=== PATIENT | female | born 1990 | race Caucasian/White ===

== ENCOUNTER 2017-06-16 17:00 | Emergency (ER) | payer MEDICAID, OTHER ==
[2017-06-16 17:18] VITALS: BP 156/100
[2017-06-16] MEDS ORDERED: Albuterol/Ipratropium 3.0-0.5 MG/3 ML Neb Soln NEB ONE (17:48)
[2017-06-16] MEDS ORDERED: Codeine/Promethazine 10-6.25 MG/5 ML Syrup 5 ML UD Cup PO ONE (17:48)
--- NOTE | 2017-06-16 17:49 | EDM.PDOC ---
ED HPI GENERAL MEDICAL PROBLEM - General Chief Complaint: Respiratory Problem Stated Complaint: CHEST PAIN WHEN COUGHING Time Seen by Provider: 06/16/17 17:47 Source of Information: Reports: Patient History Limitations: Reports: No Limitations - History of Present Illness INITIAL COMMENTS - FREE TEXT/NARRATIVE: 19-year-old female presents to the ED with acute onset of his progress severe paroxysmal cough. Hoarse voice. Chills but no defined fever. Poor appetite. No headache mild myalgia. Wallace started acutely last night and have worsened as the day has gone on. At times she cannot stop coughing. She has been exposed to influenza. She has not had a flu shot. States occasionally will bring up some sputum but has does not look at the color. Denies any obvious hemoptysis. Onset: Sudden Onset Date: 06/15/17 Duration: Hour(s): Location: Reports: Chest (Severe paroxysmal minimally productive cough.) Quality: Reports: Burning Severity: Moderate Improves with: Reports: None Worsens with: Reports: Other Context: Denies: Activity (Exposure to cool night air or laying down.), Exercise , Lifting, Sick Contact, Trauma, Other Associated Symptoms: Reports: Chest Pain ( severe paroxysmal cough), Cough ( Very little sputum production), cough w sputum, Fever/Chills, Loss of Appetite, Malaise, Shortness of Breath, Weakness. Denies: No Other Symptoms, Confusion ( until upper chest from coughing so much. ), Diaphoresis, Headaches (Chills but no defined fever), Nausea/Vomiting, Rash, Seizure, Syncope Treatments UNDERWATER WELDER: Reports: Other (see below) (None.) Chest Pain Score (Numeric/FACES): 5 - Related Data Allergies Allergy/AdvReac Type Severity Reaction Status Date / Time ibuprofen Allergy Anaphylactic Verified 06/16/17 17:19 Shock peanut Allergy Anaphylactic Verified 06/16/17 17:19 Shock wool Allergy Hives Verified 06/16/17 17:19 Home Meds: Home Meds Codeine/Promethazine [Phenergan with Codeine] 15 ml PO Q4H PRN #300 ml 06/16/17 [Rx] Doxycycline [Vibramycin 25 MG/5 ML Susp] 100 mg PO Q12H #20 bottle 06/16/17 [Rx] Levothyroxine [Synthroid] 100 mcg PO ACBREAKFAST 06/16/17 [History] Past Medical History HEENT History: Reports: Impaired Vision Endocrine/Metabolic History: Reports: Hypothyroidism Social & Family History - Tobacco Use Smoking Status *Q: Current Every Day Smoker Years of Tobacco use: 10 Packs/Tins Daily: 1 Used Tobacco, but Quit: No Month Tobacco Last Used: 2 years ago Second Hand Smoke Exposure: No - Caffeine Use Caffeine Use: Reports: Soda - Recreational Drug Use Recreational Drug Use: No Drug Use in Last 12 Months: No Recreational Drug Type: Reports: Dilaudid, Methamphetamine, Other (see below) Recreational Drug Use Frequency: Not Used In Over 6 Months - Living Situation & Occupation Occupation: Unemployed ED ROS GENERAL - Review of Systems Review Of Systems: See Below Constitutional: Reports: Chills, Malaise, Weakness, Fatigue, Decreased Appetite. Denies: Fever, Weight Loss HEENT: Reports: Throat Pain Respiratory: Reports: Shortness of Breath, Cough. Denies: Wheezing, Pleuritic Chest Pain, Sputum, Hemoptysis (Severe paroxysmal), Other Cardiovascular: Reports: Chest Pain (From coughing so much). Denies: No Symptoms, Blood Pressure Problem, Dyspnea on Exertion, Edema, Lightheadedness, Orthopnea, Palpitations, PND, Syncope, Other Endocrine: Reports: No Symptoms GI/Abdominal: Reports: No Symptoms : Reports: No Symptoms Musculoskeletal: Reports: No Symptoms Skin: Reports: No Symptoms Neurological: Reports: No Symptoms Psychiatric: Reports: No Symptoms Hematologic/Lymphatic: Reports: No Symptoms Immunologic: Reports: No Symptoms ED EXAM, GENERAL - Physical Exam Exam: See Below Exam Limited By: No Limitations General Appearance: Alert, Moderate Distress (Severe paroxysmal intermittent cough.) Eye Exam: Bilateral Eye: Normal Inspection Ears: Normal TMs Throat/Mouth: Normal Inspection, Normal Lips, Normal Teeth, Normal Oropharynx, Other Head: Atraumatic (Posterior oropharynx is mildly erythematous without any exudate.), Normocephalic Neck: Normal Inspection, Supple, Non-Tender, Full Range of Motion. No: Carotid Bruit, Limited Range of Motion, Lymphadenopathy (L), Lymphadenopathy (R) Respiratory/Chest: No Respiratory Distress, Lungs Clear, Respiratory Distress ( Mild tachypnea at rest.). No: Decreased Breath Sounds, Rhonchi, Wheezing ( Lower lungs are clear.) Cardiovascular: Normal Peripheral Pulses, Regular Rate, Rhythm (Resting heart rate is 1 15/m.), No Edema, No Gallop, No Murmur, No Rub, Tachycardia Peripheral Pulses: 3+: Posterior Tibial (L), Posterior Tibial (R), Dorsalis Pedis (L), Dorsalis Pedis (R) GI/Abdominal: Normal Bowel Sounds, Soft, Non-Tender, No Organomegaly Back Exam: Normal Inspection, Full Range of Motion Extremities: Normal Inspection, Normal Range of Motion, Non-Tender, No Pedal Edema Neurological: Alert, Oriented, CN II-XII Intact, Normal Cognition, Normal Gait Psychiatric: Normal Affect, Normal Mood Skin Exam: Warm, Intact, Normal Color, No Rash Course - Vital Signs Last Recorded V/S: Last Vital Signs Temp 36.8 C 06/16/17 17:16 Pulse 83 06/16/17 18:15 Resp 19 06/16/17 17:16 BP 156/100 H 06/16/17 17:16 Pulse Ox 96 06/16/17 17:16 - Orders/Labs/Meds Orders: Active Orders 24 hr Category Date Time Status RT Aerosol Therapy [RC] ASDIRECTED Care 06/16/17 17:48 Active Meds: Medications Discontinued Medications Generic Name Dose Route Start Last Admin Trade Name Freq PRN Reason Stop Dose Admin Albuterol/Ipratropium 3 ml 06/16/17 17:48 06/16/17 18:14 Duoneb 3.0-0.5 Mg/3 Ml NEB 06/16/17 17:49 3 ml ONETIME ONE Administration Promethazine HCl/Codeine 15 ml 06/16/17 17:48 06/16/17 18:05 Phenergan With Codeine PO 06/16/17 17:49 15 ml ONETIME ONE Administration - Radiology Interpretation Free Text/Narrative:: 19-year-old female presents to the ED with sudden onset of acute illness with severe paroxysmal cough to the point of emesis. Symptoms came on acutely last night. No defined fever but chills. Is coughing up occasional sputum but she has not had a look at the color. Denies any hemoptysis. She states that time she just can't stop coughing. She has no history of asthma or diabetes. She has managed to eat and drink fairly normally today although her appetite is not as good as normal. She has not had a flu shot. On examination lungs are clear to auscultate percussion. She has a harsh paroxysmal cough that sounds mostly dry. Her nose and throat exam is otherwise normal. Plan DuoNeb. Cough syrup will be Phenergan with codeine 15 mils per ora to relieve cough. Influenza screen to be done. - Re-Assessments/Exams Free Text/Narrative Re-Assessment/Exam: 06/16/17 19;00: Influenza screen returned as normal. Patient will therefore be discharged to home with Phenergan with codeine cough syrup 10-15 mils every 6 hours when necessary for cough relief. Doxycycline 100 mg twice daily for 10 days for bronchitis. Departure - Departure Time of Disposition: 18:37 Disposition: Home, Self-Care 01 Condition: Fair Clinical Impression: Bronchitis - Discharge Information Prescriptions: Codeine/Promethazine [Phenergan with Codeine] 15 ml PO Q4H PRN #300 ml PRN Reason: Cough relief Doxycycline [Vibramycin 25 MG/5 ML Susp] 100 mg PO Q12H #20 bottle Instructions: Acute Bronchitis, [id number] Referrals: PCP,None [Primary Care Provider] - Forms: ED Department Discharge, ED Return to Work/School Form Additional Instructions: Evaluation the emergency room today in regards to acute onset of upper respiratory tract infection with paroxysmal severe cough and sputum production. Influenza screen proved to be negative. You have developed a bronchitis. Treatment is therefore coughs control with Phenergan with codeine syrup 10-15 mils every 6 hours as needed for cough relief. This is better if it's taking with little bit of food or fluid in your stomach. Antibiotic is to be doxycycline 100 mg twice daily for the next 10 days to clear up bronchitis. - My Orders Last 24 Hours: My Active Orders 06/16/17 17:48 RT Aerosol Therapy [RC] ASDIRECTED - Assessment/Plan Last 24 Hours: My Active Orders 06/16/17 17:48 RT Aerosol Therapy [RC] ASDIRECTED
== END 2017-06-16 19:30 | disposition home or self-care (01) ==
LOC: JD.ED 17:00
DX: J40 Bronchitis, not specified as acute or chronic (principal); F17.210 Nicotine dependence, cigarettes, uncomplicated; E03.9 Hypothyroidism, unspecified; Z88.6 Allergy status to analgesic agent; Z91.012 Allergy to eggs; Z91.048 Other nonmedicinal substance allergy status
CPT/HCPCS: 87804; 94640; 99284; A9270

== ENCOUNTER 2017-06-24 00:23 | Emergency (ER) | payer MEDICAID, OTHER ==
[2017-06-24 00:36] VITALS: BP 150/105
--- NOTE | 2017-06-24 01:52 | EDM.PDOC ---
ED HPI GENERAL MEDICAL PROBLEM - General Chief Complaint: Respiratory Problem Stated Complaint: COUGHING/VOMITING BLOOD Time Seen by Provider: 06/24/17 01:48 Source of Information: Reports: Patient, Significant Other (Girlfriend) History Limitations: Reports: No Limitations - History of Present Illness INITIAL COMMENTS - FREE TEXT/NARRATIVE: Medical records indicate that the patient was seen in this ED on 06/16/2017 for a cough. The patient states that she had developed a cough that day. An influenza swab was negative. She was diagnosed with bronchitis, and prescribed doxycycline 100 mg po BID x 10 days, that she is still taking, and Phenergan with codeine cough syrup, 15 mL Q 4hrs, 300 ml. She states that her cough stopped the day after she started taking these medicines, and that she stopped taking the cough medicine yesterday. She states that she then developed a painful cough tonight, associated with specks of blood since 22:30. No recent fever. No nausea, vomiting, constipation, or diarrhea. No prior similar symptoms. The patient does not have a PCP. Chest Pain Score (Numeric/FACES): 8 - Related Data Allergies Allergy/AdvReac Type Severity Reaction Status Date / Time ibuprofen Allergy Anaphylactic Verified 06/16/17 17:19 Shock peanut Allergy Anaphylactic Verified 06/16/17 17:19 Shock wool Allergy Hives Verified 06/16/17 17:19 Home Meds: Home Meds Codeine/Promethazine [Phenergan with Codeine] 15 ml PO Q4H PRN #300 ml 06/16/17 [Rx] Levothyroxine [Synthroid] 100 mcg PO ACBREAKFAST 06/16/17 [History] Codeine/Promethazine [Phenergan with Codeine] 5 ml PO Q4HR PRN #50 cup 06/24/17 [Rx] Past Medical History HEENT History: Reports: Impaired Vision Endocrine/Metabolic History: Reports: Hypothyroidism, Obesity/BMI 30+ - Past Surgical History HEENT Surgical History: Reports: Oral Surgery ([place] teeth extraction) Social & Family History - Family History Family Medical History: Noncontributory - Tobacco Use Smoking Status *Q: Current Every Day Smoker Years of Tobacco use: 18 Packs/Tins Daily: 1 - Caffeine Use Caffeine Use: Reports: Soda - Alcohol Use Alcohol Use History: Yes Alcohol Use Frequency: Socially - Recreational Drug Use Recreational Drug Use: Yes Drug Use in Last 12 Months: No Recreational Drug Type: Reports: Dilaudid, Marijuana/Hashish, Methamphetamine, Other (see below) Recreational Drug Use Frequency: Not Used In Over 1 Year - Living Situation & Occupation Living situation: Reports: Single, Other (With friends) Occupation: Unemployed ED ROS GENERAL - Review of Systems Review Of Systems: ROS reveals no pertinent complaints other than HPI. ED EXAM, GENERAL - Physical Exam Exam: See Below Exam Limited By: No Limitations General Appearance: Alert, WD/WN, No Apparent Distress Eye Exam: Bilateral Eye: Normal Inspection Ears: Normal External Exam, Normal Canal, Hearing Grossly Normal, Normal TMs ( Scar on right TM, consistent with prior myringotomy) Nose: Normal Inspection, Normal Mucosa, No Blood Throat/Mouth: Normal Inspection, Normal Lips, Normal Teeth, Normal Gums, Normal Oropharynx, Normal Voice, No Airway Compromise, Other (Tongue piercing) Head: Atraumatic, Normocephalic Neck: Normal Inspection, Supple, Non-Tender, Full Range of Motion. No: Lymphadenopathy (L), Lymphadenopathy (R) Respiratory/Chest: No Respiratory Distress, Lungs Clear, Normal Breath Sounds, No Accessory Muscle Use Cardiovascular: Normal Peripheral Pulses, Regular Rate, Rhythm, No Edema, No Gallop, No JVD, No Murmur, No Rub Peripheral Pulses: 4+: Radial (L), Radial (R) GI/Abdominal: Normal Bowel Sounds, Soft, Non-Tender, No Organomegaly, No Distention, No Abnormal Bruit, No Mass, Other (Obese) (Female) Exam: Deferred Rectal (Female) Exam: Deferred Back Exam: Normal Inspection, Full Range of Motion Extremities: Normal Inspection, Normal Range of Motion, No Pedal Edema, Normal Capillary Refill Neurological: Alert, Oriented, Normal Cognition, No Motor/Sensory Deficits Psychiatric: Normal Affect Skin Exam: Warm, Dry, Intact, Normal Color, No Rash Course - Vital Signs Last Recorded V/S: Last Vital Signs Temp 36.1 C 06/24/17 00:31 Pulse 122 H 06/24/17 00:31 Resp 25 H 06/24/17 00:31 BP 150/105 H 06/24/17 00:31 Pulse Ox 94 L 06/24/17 00:31 - Orders/Labs/Meds Orders: Active Orders 24 hr Category Date Time Status Chest 2V [CR] Stat Exams 06/24/17 00:53 Taken - Re-Assessments/Exams Free Text/Narrative Re-Assessment/Exam: 06/24/17 01:52 Two-view chest radiograph appears to be grossly normal. Cardiac silhouette is within normal limits. No pulmonary vascular congestion. No pleural effusions. No focal infiltrate. No pneumothorax. Formal read per the Radiologist pending. 06/24/17 02:12 As the patient had only been coughing for one day when she was seen in this ED on 06/16/2017, strictly speaking, a diagnosis of bronchitis at that time was premature. Nevertheless, I believe the patient doesn't fact have bronchitis. The specks of blood that she saw when she coughs is not from her lungs, rather is From raw mucous membranes in the posterior oropharynx. The patient is running out of the Phenergan with codeine that she was prescribed on 06/16/2017. This medicine appears to be quite effective in controlling her cough. The ED is is not supposed to refill any medications, however in this case, I will prescribe her a small dose, with the stipulation that she follow-up with a PCP. The patient has agreed. Departure - Departure Time of Disposition: 02:12 Disposition: Home, Self-Care 01 Condition: Good Clinical Impression: Bronchitis - Discharge Information Prescriptions: Codeine/Promethazine [Phenergan with Codeine] 5 ml PO Q4HR PRN #50 cup PRN Reason: Cough Instructions: Acute Bronchitis Referrals: Denita Phillips MD [Physician] - PCP,None [Primary Care Provider] - Forms: ED Department Discharge Additional Instructions: You were seen in the emergency room for a recurrent painful cough with specks of blood. Workup in the ER included a chest x-ray, which was normal. You do not have pneumonia. Based on your history and physical examination, you MOST LIKELY have viral bronchitis. A small refill of the cough medicine Phenergan with codeine has been given to you. Take 15 mL every 4 hours, as needed for cough. If you take this medicine, do not drive within 10 hours of taking. This medicine may cause constipation, so consider taking a stool softener. You may stop taking the doxycycline. Follow-up with Dr. Denita Phillips as a primary care Physician this coming week. If any other problems, please do not hesitate to return to the ER. - My Orders Last 24 Hours: My Active Orders 06/24/17 00:53 Chest 2V [CR] Stat - Assessment/Plan Last 24 Hours: My Active Orders 06/24/17 00:53 Chest 2V [CR] Stat
--- NOTE | 2017-06-24 08:40 | CR ---
Chest: Two views of the chest were obtained. Comparison: No prior study. Heart size and mediastinum are normal. Lungs are clear. Bony structures are within normal limits. Impression: 1. Nothing acute is identified on two-view chest x-ray. Diagnostic code #1
== END 2017-06-24 02:41 | disposition home or self-care (01) ==
LOC: JD.ED 00:23
DX: J40 Bronchitis, not specified as acute or chronic (principal); F17.210 Nicotine dependence, cigarettes, uncomplicated; E03.9 Hypothyroidism, unspecified; Z88.6 Allergy status to analgesic agent; Z91.048 Other nonmedicinal substance allergy status; Z91.010 Allergy to peanuts; Z79.899 Other long term (current) drug therapy
CPT/HCPCS: 71046; 71046-26; 87804; 99283; 99284

== ENCOUNTER 2018-10-27 01:45 | Emergency (ER) | payer SELFPAY ==
[2018-10-27 01:54] VITALS: BP 130/99
[2018-10-27] MEDS ORDERED: Orphenadrine 100 MG Tab.ER PO STA (02:16)
--- NOTE | 2018-10-27 02:21 | EDM.PDOC ---
ED HPI GENERAL MEDICAL PROBLEM - General Chief Complaint: Abdominal Pain Stated Complaint: SIDE PAIN Time Seen by Provider: 10/27/18 01:57 Source of Information: Reports: Patient, RN Notes Reviewed, Other (Friend) History Limitations: Reports: No Limitations - History of Present Illness INITIAL COMMENTS - FREE TEXT/NARRATIVE: The patient states that she developed right upper quadrant abdominal pain around 01:30 this morning. It is stabbing in character. It does not radiate anywhere. It felt better when she applied an ice pack, and she states it also feels better if she holds her breath. She vomited once around 01:30, that she feels was due to the pain. No prior similar symptoms. The patient acknowledges that her pain occurred after chasing someone for about a block. The patient does not ordinarily exercise. Here in the ED, the patient is found to be mildly tachycardic, with an oxygen saturation 100% on room air. She is anxious and crying. The patient's PCP is Dr. Brenda Staton. Right Upper Abdomen Pain Score (Numeric/FACES): 10 - Related Data Allergies Allergy/AdvReac Type Severity Reaction Status Date / Time ibuprofen Allergy Anaphylactic Verified 10/27/18 01:52 Shock peanut Allergy Anaphylactic Verified 10/27/18 01:52 Shock wool Allergy Hives Verified 10/27/18 01:52 Home Meds: Home Meds Levothyroxine [Synthroid] 100 mcg PO ACBREAKFAST 06/16/17 [History] Orphenadrine [Norflex] 1 tab PO Q12H PRN #10 tab.er 10/27/18 [Rx] Past Medical History HEENT History: Reports: Impaired Vision Psychiatric History: Reports: Anxiety (untreated), Depression (untreated) Endocrine/Metabolic History: Reports: Hypothyroidism - Past Surgical History HEENT Surgical History: Reports: Oral Surgery (wisdom teeth extraction) Social & Family History - Family History Family Medical History: Noncontributory - Tobacco Use Smoking Status *Q: Current Every Day Smoker Years of Tobacco use: 3 Packs/Tins Daily: 1 - Caffeine Use Caffeine Use: Reports: Coffee - Alcohol Use Alcohol Use History: Yes Alcohol Use Frequency: Socially - Recreational Drug Use Recreational Drug Use: Yes Drug Use in Last 12 Months: No Recreational Drug Type: Reports: Heroin Recreational Drug Use Frequency: Not Used In Over 6 Months - Living Situation & Occupation Living situation: Reports: Single, Other (with a friend) Occupation: Employed ([employer]) ED ROS GENERAL - Review of Systems Review Of Systems: ROS reveals no pertinent complaints other than HPI. ED EXAM, GENERAL - Physical Exam Exam: See Below Exam Limited By: No Limitations General Appearance: Alert, WD/WN, Anxious Eye Exam: Bilateral Eye: EOMI, Nystagmus Ears: Normal External Exam, Hearing Grossly Normal Nose: Normal Inspection Throat/Mouth: Normal Inspection, Normal Lips, Normal Voice, No Airway Compromise Head: Atraumatic, Normocephalic Neck: Normal Inspection, Full Range of Motion Respiratory/Chest: No Respiratory Distress, Lungs Clear, Normal Breath Sounds, No Accessory Muscle Use, Chest Non-Tender Cardiovascular: Normal Peripheral Pulses, No Edema, No Gallop, No JVD, No Murmur , No Rub, Tachycardia (regular) Peripheral Pulses: 4+: Radial (L), Radial (R) GI/Abdominal: Normal Bowel Sounds, Soft, Non-Tender (including the RUQ, including the lower right ribs and costal margin), No Organomegaly, No Distention, No Abnormal Bruit, No Mass (Female) Exam: Deferred Rectal (Female) Exam: Deferred Back Exam: Normal Inspection, Full Range of Motion. No: CVA Tenderness (L), CVA Tenderness (R) Extremities: Normal Inspection, Normal Range of Motion, No Pedal Edema, Normal Capillary Refill Neurological: Alert, Oriented, Normal Cognition, No Motor/Sensory Deficits Psychiatric: Anxious, Tearful (slightly) Skin Exam: Warm, Dry, Intact, Normal Color, No Rash Course - Vital Signs Last Recorded V/S: Last Vital Signs Temp 36.2 C 10/27/18 01:52 Pulse 106 H 10/27/18 01:52 Resp 20 10/27/18 01:52 BP 130/99 H 10/27/18 01:52 Pulse Ox 100 10/27/18 01:52 - Orders/Labs/Meds Meds: Medications Discontinued Medications Generic Name Dose Route Start Last Admin Trade Name Freq PRN Reason Stop Dose Admin Orphenadrine Citrate 100 mg 10/27/18 02:16 10/27/18 02:21 Norflex PO 10/27/18 02:17 100 mg ONETIME STA Administration - Re-Assessments/Exams Free Text/Narrative Re-Assessment/Exam: 10/27/18 02:17 Based on the patient's history and physical examination, she appears to be suffering from an abdominal wall muscle spasm, likely brought on from chasing someone about a block earlier tonight. The patient will receive Norflex here, and I will send a prescription to the pharmacy of her choice. She can take over- the-counter ibuprofen at home. This should resolve within a day or two. Departure - Departure Time of Disposition: 02:17 Disposition: Home, Self-Care 01 Condition: Good Clinical Impression: Muscle spasm - Discharge Information *PRESCRIPTION DRUG MONITORING PROGRAM REVIEWED*: Not Applicable *COPY OF PRESCRIPTION DRUG MONITORING REPORT IN PATIENT LROENZO: Not Applicable Prescriptions: Orphenadrine [Norflex] 1 tab PO Q12H PRN #10 tab.er PRN Reason: Muscle Spasm Instructions: Muscle Cramps and Spasms Referrals: Brenda Staton MD [Ordering Only Provider] - Forms: ED Department Discharge Additional Instructions: You were seen in the emergency room for stabbing upper right abdominal pain. Based on your history and physical examination, your pain is due to a abdominal wall muscle spasm. You have been started on the muscle relaxant Norflex. A prescription for Norflex [facility], located in the [facility], across the [address] from the hospital. Take one tablet of Norflex every 12 hours, as needed for muscle spasm pain. In addition, you may also take [id number] ibuprofen, 2-3 tablets (400-600 mg) every 8 hours, with food, as needed for discomfort. If any other problems, please do not hesitate to return to the ER.
== END 2018-10-27 02:36 | disposition home or self-care (01) ==
LOC: JD.ED 01:45
DX: M62.838 Other muscle spasm (principal); E03.9 Hypothyroidism, unspecified; F17.210 Nicotine dependence, cigarettes, uncomplicated; Z79.899 Other long term (current) drug therapy; Z98.890 Other specified postprocedural states; Z88.8 Allergy status to other drugs, medicaments and biological substances; Z88.6 Allergy status to analgesic agent; Z91.010 Allergy to peanuts
CPT/HCPCS: 99283; A9270